=== PATIENT | male | born 1955 | race African-American/Black ===

== ENCOUNTER 2017-12-08 21:24 | Inpatient (IN) | payer SELFPAY ==
[2017-12-08 22:32] LABS: INR-International Normal Ratio 1.1; PTT 33.3 SEC (22.9-36.1); Prothrombin Time 13.9 SEC (12.0-14.7)
--- NOTE | 2017-12-08 22:35 | RAD ---
PORTABLE CHEST ONE VIEW: 12/08/17 at 10:02 p.m. HISTORY: Preoperative evaluation. FINDINGS: The heart size is normal. The lungs are expanded without focal areas of consolidation, pneumothoraces , or pleural effusions. IMPRESSION: No acute process POS: [facility]
[2017-12-08] MEDS ORDERED: Ketorolac Tromethamine 30 MG/ML VIAL ONE (22:43)
[2017-12-08] MEDS ORDERED: hydrALAZINE 20 MG/ML VIAL SLOW IVP PRN (23:29)
[2017-12-08] MEDS ORDERED: Ondansetron HCl/PF 4 MG/2 ML Vial IVP PRN (23:29)
[2017-12-08] MEDS ORDERED: Morphine 4 MG/ML VIAL SLOW IVP PRN (23:29)
[2017-12-08] MEDS ORDERED: CEFAZOLIN/Water 2 GM/20 ML SYRINGE SLOW IVP SCH (23:45)
--- NOTE | 2017-12-08 23:53 | HP ---
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 He has h ad a left inguinal hernia for 10 years. He states he was to have that repaired in [place] when he l ived in [place], but there was some confusion in the surgery dates. He has been wearing a truss like apparatus. He has always been able to reduce his hernia was not able to reduce it today. At 6:00 p .m., he reported to [place] where they did a CAT scan demonstrating incarcerated hernia, was transfe rred to [facility] and efforts to reduce this were unsuccessful. I was called at 10:30 p.m. The patient states he has been nauseated, but has not had any vomiting. His abdomen is not distend ed. ALLERGIES: None. TOBACCO: Half pack per day. ALCOHOL: Socially. MEDICATIONS: None. PAST SURGICAL HISTORY: Noncontributory. SOCIAL HISTORY: Patient is single. REVIEW OF SYSTEMS: Noncontributory. FAMILY HISTORY: Noncontributory. PHYSICAL EXAMINATION: VITAL SIGNS: Blood pressure 120/74, respiratory rate 20, heart rate 74. HEAD, EYES, EARS, NOSE, AND THROAT : Unremarkable. LUNGS: Clear to auscultation. CARDIAC: Regular rate and rhythm without murmur or gallop. ABDOMEN: Soft. Nondistended, nontender. GENITOURINARY: Testicles normal. Left inguinal hernia, partially reduced. EXTREMITIES: Unremarkable. No ankle edema. LABORATORIES: PT/INR normal. Liver function test reveal bilirubin is 1.5, slightly elevated. White count 12, hemoglobin 14, BUN 13, creatinine 1.1, potassium 2.8, sodium 139. ASSESSMENT AND PLAN: 1. Left inguinal hernia, partially reduced in the emergency room. We will plan repair. Tonight C-s ection will be going colon at 11:30 at night and plan will be to repair this Tuesday morning. 2. Hypokalemia, replace.
[2017-12-09 02:50] VITALS: BMI 22.8
[2017-12-09] MEDS: Potassium Chloride 20 MEQ in Premix Bag 1 BAG IVPB SCH (03:11)
[2017-12-09] MEDS: Acetaminophen 1,000 MG in Premix Bag 1 BAG IVPB SCH ×3 (03:12→14:11)
[2017-12-09] MEDS: Ketorolac Tromethamine 30 MG/ML VIAL IVP SCH ×2 (03:12→07:21)
[2017-12-09] MEDS: Potassium Chloride 20 MEQ in Lactated Ringer's 1,000 ML IV SCH ×2 (03:19→14:11)
[2017-12-09 04:25] LABS: #Eosinphils 0.1 thou/uL (0.0-0.7); #Lymphocytes 1.8 thou/uL (1.20-3.40); #Monocytes 0.7 thou/uL (0.11-0.59); #Neutrophils 7.4 thou/uL (1.40-6.50); %Basophils 0.4 % (0.0-1.0); %Eosinophils 0.9 % (0.0-10.0); %Lymphocytes 17.7 % (21.0-51.0); %Monocytes 7.2 % (0.0-10.0); %Neutrophils 73.8 % (42.0-75.0); Hemoglobin 12.4 g/dL (14.0-18.0); Mean Corpuscular Hemoglobin 27.7 pg (27.0-31.0); Mean Corpuscular Volume 81.5 fL (78.0-98.0); Platelet Count 197 thou/uL (130-400); RBC Distribution Width 13.8 % (11.5-14.5); Red Blood Cell (RBC) Count 4.46 mill/uL (4.70-6.10); White Blood Cell (WBC) Count 10.1 thou/uL (4.8-10.8)
[2017-12-09 04:43] LABS: Anion Gap 13 mmol/L (10-20); BUN (Urea Nitrogen) 9 mg/dL (8.4-25.7); Calc. Creatinine Clearance 90 mL/min (70-130); Calcium 7.9 mg/dL (7.8-10.44); Carbon Dioxide 21 mmol/L (23-31); Chloride 108 mmol/L (98-107); Estimated GFR-MDRD Greater than 90; Glucose 84 mg/dL (80-115); Potassium 3.1 mmol/L (3.5-5.1); Sodium 139 mmol/L (136-145)
[2017-12-09] MEDS ORDERED: Ketorolac Tromethamine 30 MG/ML VIAL ONE (06:14)
[2017-12-09] MEDS ORDERED: CEFAZOLIN/Water 2 GM/20 ML SYRINGE ONE (06:15)
[2017-12-09] MEDS ORDERED: Midazolam HCl 2 mg/2 ml Vial ONE (06:23)
[2017-12-09] MEDS ORDERED: Fentanyl 100 MCG/2 ML VIAL ONE (06:23)
[2017-12-09] MEDS ORDERED: Bupivacaine HCl 0.5%/Epinephrine 1:200,000/PF 30 ml Vial ONE (06:27)
[2017-12-09] MEDS ORDERED: Albumin 25% 200 ML ONE (06:43)
[2017-12-09] MEDS ORDERED: Norepinephrine 4 MG/4 ML VIAL ONE (06:46)
[2017-12-09] MEDS ORDERED: PHENYLEPHRINE-NS 100 MCG/ML 10 ML SYRINGE ONE (06:46)
[2017-12-09] MEDS ORDERED: Lidocaine 2% 10 ML INJ ONE (07:14)
[2017-12-09] MEDS ORDERED: Albuterol Sulfate HFA (OR ONLY) ONE (08:03)
[2017-12-09] MEDS ORDERED: Famotidine/PF 20 mg/2ml Vial SLOW IVP SCH (09:00)
[2017-12-09] MEDS ORDERED: HYDROcodone/Acetaminophen 5/325 mg Tablet PO PRN ×2 (09:23)
[2017-12-09] MEDS ORDERED: traMADol HCl 50 MG TAB PO PRN ×2 (09:23)
[2017-12-09] MEDS ORDERED: Ibuprofen 600 MG TAB PO PRN (09:23)
--- NOTE | 2017-12-09 09:33 | OP ---
DATE OF PROCEDURE: 12/09/2017 PREOPERATIVE DIAGNOSES: Incarcerated sliding left inguinal hernia with bowel obstruction. POSTOPERATIVE DIAGNOSIS: Incarcerated sliding left inguinal hernia with bowel obstruction. PROCEDURE: PHS mesh repair of sliding incarcerated left inguinal hernia, indirect. SURGEON: Dr. Fernando Conn ANESTHESIA: General. Local 0.5% Marcaine with epinephrine, 30 mL, mixed with 2% Xylocaine, 10 mL to howard volume mixture used. INDICATIONS: The patient has had a hernia for 10 years, scheduled to have this repaired in the [place], [place] area, but had scheduling problems and did not. 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 He was transferred to [facility] where I partially reduced it [facility] night and then he was hospitalized overnight and it reduced during the night. He presents to the operating room for repair. PROCEDURE: The patient was taken to the operating room where under general anesthesia, abdomen and g roin clipped of hair, prepared with ChloraPrep, draped in routine fashion. Ioban was used. Local an esthetic mixture infiltrating skin and subcutaneous tissue for ilioinguinal nerve block along the kev e of incision in the left groin. Incision made, carried down skin and subcutaneous tissue to the ext ernal oblique, incising it in the direction of its fibers, identifying a very large hernia sac, disse cted free, opened under direct visualization ligated with pursestring suture of 0 Nurolon. This was a pursestring suture was created around the hernia sac adjacent to the sigmoid colon, avoiding injury to that. This was reduced back into the abdominal cavity after mesh was secured to the stump of the hernia sac and high excision of hernia sac performed. Cord structures kept free of harm. Underlay portion of the mesh placed in the preperitoneal space. Onlay portion placed in the floor of the mukesh l, placing the extended portion superiorly in the inguinal canal and making a slit in the mesh latera lly to accommodate the cord structures and bringing the mesh creating a synthetic internal ring, secu ring the mesh to Poupart's ligament with interrupted suture of 0 Nurolon x2. Inferiorly, the mesh se cured to Kit's ligament with 2 interrupted sutures of 0 Nurolon. External oblique closed with con tinuous suture of 3-0 Monocryl, skin with subdermal 3-0 Monocryl continuous with local anesthetic mix ture infiltrated in the inguinal canal and infiltrated in the skin and subcutaneous tissue. Scrotal support applied. Dermabond applied. The patient tolerated the procedure well.
--- NOTE | 2017-12-09 09:50 | DIS ---
DISCHARGE DIAGNOSES: Incarcerated left inguinal hernia with bowel obstruction. POSTOPERATIVE DIAGNOSES: Incarcerated left inguinal hernia with bowel obstruction. PROCEDURE: PHS mesh repair of left inguinal hernia. HISTORY: A 62-year-old black male working in [place] has had a left inguinal hernia that he has bee n able to reduce for the past 10 years. He tells me that he was to have this repaired in the [place], [place] area, but had scheduling problems. He has been wearing a truss. 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 The patient was transferred to [facility] where I was called at 10:45 p.m. to see him. Efforts to reduce this hernia were partially successful, but it could not be completely reduced. I then called the operating room, but the operating room was not available un til 2 in the morning due to anesthesia obligations. Thus, the patient was hospitalized to perform th is hernia repair first thing Tuesday morning. During the night the hernia reduced. He presents and u nderwent PHS mesh repair of the left inguinal hernia and is discharged home with instructions to take Tylenol, Motrin and given a prescription for Ultram #35 with 2 refills, and hydrocodone 5/325, #20 t o take as needed initially. No lifting over 25 pounds. Follow up in my office in about 2 weeks. Of f work for 2 weeks. Scrotal support given.
[2017-12-09] MEDS ORDERED: Potassium Chloride 20 MEQ TAB PO SCH (10:30)
[2017-12-09] MEDS ORDERED: Acetaminophen 500 MG TAB PO SCH (10:30)
[2017-12-09 11:37] VITALS: BP 117/76; TEMP 98.7
[2017-12-10] MEDS ORDERED: Polyethylene Glycol 3350 17 GM Packet PO SCH (09:00)
== END 2017-12-09 14:14 | disposition home or self-care (01) | DRG 351 ==
LOC: ERS 21:24 → 2SE 12-09 00:11
PROVIDERS: ADMIT Specialist; ATTEND Specialist
PROC: 0YU60JZ Supplement Left Inguinal Region with Synthetic Substitute, Open Approach (ICD-10-PCS; principal; 2017-12-09)
DX: K40.91 Unilateral inguinal hernia, without obstruction or gangrene, recurrent (principal); K56.699 Other intestinal obstruction unspecified as to partial versus complete obstruction; F17.210 Nicotine dependence, cigarettes, uncomplicated; E87.6 Hypokalemia
CPT/HCPCS: 36415; 71045; 80048; 85025; 85610; 85730; 86850; 86900; 86901; 90471; 90732; 93005; C1781; G0009; J0131; J0670; J1885; J2250; J3010; J3480; J7120; P9047